=== PATIENT | male | born 1995 | race African-American/Black ===

== ENCOUNTER 2020-12-10 10:21 | Emergency (ER) | payer BC ==
[~2020-12-10] VITALS: Ht 175.3 cm; Wt 81.7 kg
[2020-12-10] MEDS ORDERED: FLEXERIL (10:33)
[2020-12-10] MEDS ORDERED: MOBIC7.5 MG PO ×2 (10:34→12:07)
[2020-12-10] MEDS ORDERED: MEDROLDOSEPACK PO (12:04)
[2020-12-10] MEDS ORDERED: ZANAFLEX4 MG PO (12:07)
[2020-12-10 12:20] VITALS: BP 153/78
== END 2020-12-10 12:20 | disposition home or self-care (01) ==
LOC: ER 10:21
DX: S39.012A Strain of muscle, fascia and tendon of lower back, initial encounter (principal); Z79.899 Other long term (current) drug therapy; X50.1XXA Overexertion from prolonged static or awkward postures, initial encounter; Y93.89 Activity, other specified; Y92.89 Other specified places as the place of occurrence of the external cause; Y99.9 Unspecified external cause status

== ENCOUNTER 2021-01-20 15:13 | Emergency (ER) | payer BC ==
[~2021-01-20] VITALS: Ht 175.3 cm; Wt 78.0 kg
[~2021-01-20 15:13] MED LIST: FLEXERIL; MEDROLDOSEPACK PO; MOBIC7.5 MG PO; ZANAFLEX4 MG PO
[2021-01-20 15:20] VITALS: BP 161/95
[2021-01-20] MEDS ORDERED: NORFLEX100 MG PO (15:23)
[2021-01-20] MEDS ORDERED: PERCOCET 5-3251 EACH PO (16:13)
== END 2021-01-20 16:15 | disposition home or self-care (01) ==
LOC: ER 15:13
DX: M54.6 Pain in thoracic spine (principal); Z79.899 Other long term (current) drug therapy

== ENCOUNTER 2021-05-27 13:30 | Emergency (ER) | payer BC ==
[~2021-05-27] VITALS: Ht 175.3 cm; Wt 77.1 kg
[~2021-05-27 13:30] MED LIST changes: +NORFLEX100 MG PO; +PERCOCET 5-3251 EACH PO
[2021-05-27 13:44] VITALS: BP 167/74
[2021-05-27] MEDS ORDERED: MEDROLDOSEPACK PO (15:03)
[2021-05-27] MEDS ORDERED: ZANAFLEX4 MG PO (15:03)
[2021-05-27] MEDS ORDERED: MOBIC7.5 MG PO (15:03)
== END 2021-05-27 15:24 | disposition home or self-care (01) ==
LOC: ER 13:30
DX: M54.50 Low back pain, unspecified (principal)

== ENCOUNTER 2021-06-08 23:36 | Emergency (ER) | payer BC ==
[~2021-06-08] VITALS: Ht 175.3 cm; Wt 74.8 kg
[2021-06-08 23:40] VITALS: BP 140/76
[2021-06-09] MEDS ORDERED: IBUPROFEN 800800 MG PO (00:57)
== END 2021-06-09 01:25 | disposition home or self-care (01) ==
LOC: ER 23:36
DX: J02.9 Acute pharyngitis, unspecified (principal)

== ENCOUNTER 2021-07-14 13:59 | Emergency (ER) | payer BC ==
[~2021-07-14] VITALS: Ht 175.3 cm; Wt 77.1 kg
[~2021-07-14 13:59] MED LIST changes: +IBUPROFEN 800800 MG PO
[2021-07-14 14:07] VITALS: BP 171/73
== END 2021-07-14 15:01 | disposition home or self-care (01) ==
LOC: ER 13:59
DX: M79.604 Pain in right leg (principal); G89.29 Other chronic pain; Z79.891 Long term (current) use of opiate analgesic; Z79.899 Other long term (current) drug therapy